=== PATIENT | male | born 1950 | race Caucasian/White ===

== ENCOUNTER 2024-03-08 15:39 | Emergency (ER) | payer OTHER ==
[~2024-03-08] VITALS: Ht 180.3 cm; Wt 87.5 kg
[2024-03-08 16:25] LABS: BASOPHILS ABSOLUTE AUTO 0.05 K/mm3 (0.00-0.23); BASOPHILS PERCENT AUTO 1 % (0-2); EOSINOPHILS PERCENT AUTO 3 % (0-6); Hematocrit 46.2 % (37.0-53.0); Hemoglobin 16.2 g/dL (13.5-17.5); IMMATURE GRAN ABSOLUTE AUTO 0.05 K/mm3 (0.00-0.10); IMMATURE GRAN PERCENT AUTO 1 % (0-1); LYMPHOCYTES ABSOLUTE AUTO 2.15 K/mm3 (0.84-5.20); LYMPHOCYTES PERCENT AUTO 21 % (21-46); MONOCYTES ABSOLUTE AUTO 1.06 K/mm3 (0.16-1.47); MONOCYTES PERCENT AUTO 10 % (4-13); Mean Corpuscular HGB Conc 35.1 g/dL (31.5-36.5); Mean Corpuscular Volume 89 fL (80-100); Mean Platelet Volume 9.3 fL (9.1-12.4); NEUTROPHILS ABSOLUTE AUTO 6.83 K/mm3 (1.96-9.15); NEUTROPHILS PERCENT AUTO 65 % (41-73); Platelet Count 278 K/mm3 (150-400); RDW Coefficient Variation 13.9 % (11.7-14.2); RDW Standard Deviation 44.8 fL (35.1-46.3); Red Blood Cell Count 5.22 M/mm3 (4.30-5.90); White Blood Cell Count 10.44 K/mm3 (4.00-11.30)
[2024-03-08 16:48] LABS: Albumin, Blood 4.4 g/dL (3.4-5.0); Albumin/Globulin Ratio 1.2 (0.8-1.8); Bilirubin, Total 0.6 mg/dL (0.1-1.0); Bun/Creatinine Ratio 15.5 (12.0-20.0); Calcium, Blood 9.1 mg/dL (8.5-10.1); Creatinine, Blood 1.48 mg/dL (0.60-1.20); Globulin, Blood 3.8 g/dL (2.2-4.0); Potassium, Blood 4.3 mmol/L (3.5-5.5); Total Protein, Blood 8.2 g/dL (6.4-8.2)
[2024-03-08] MEDS ORDERED: LORazepam 2 MG/ML 1ML Injection IV ONE (19:20)
[2024-03-08] MEDS ORDERED: Morphine Sulfate 4 MG/1 ML Injection IV ONE (19:20)
[2024-03-08] MEDS ORDERED: Amlodipine Bes2.5 MG (20:43)
[2024-03-08] MEDS ORDERED: ALLO100 (20:44)
[2024-03-08] MEDS ORDERED: RANI150EL (20:44)
[2024-03-08] MEDS ORDERED: Lisinopril2.5 MG (20:44)
[2024-03-08 21:02] VITALS: BP 138/85
== END 2024-03-08 21:02 | disposition home or self-care (01) ==
LOC: ER 15:39
PROVIDERS: Student in an Organized Health Care Education/Training Program
DX: K42.9 Umbilical hernia without obstruction or gangrene (principal)
CPT/HCPCS: 74177; 80053; 85025; 96374-59; 96375; 99284-25; J2060; J2270; Q9967